=== PATIENT | male | born 1965 | race Caucasian/White ===

== ENCOUNTER 2017-11-21 20:11 | Emergency (ER) | payer MEDICAID, OTHER ==
[~2017-11-21] VITALS: Ht 188 cm; Wt 130.2 kg
[2017-11-21 20:36] VITALS: BP 115/60
== END 2017-11-21 23:57 | disposition left against medical advice (07) ==
LOC: ER 20:20
DX: R07.9 Chest pain, unspecified (principal); Z53.21 Procedure and treatment not carried out due to patient leaving prior to being seen by health care provider
CPT/HCPCS: 93005